=== PATIENT | female | born 1945 | race Two or more races ===

== ENCOUNTER 2019-02-28 05:25 | Day surgery (SDC) | payer OTHER ==
[~2019-02-28 05:25] MED LIST: ATIVAN0.5 MG PO; DIOVAN HCT 320/1 TAB; HYZAAR 100-251 EACH PO; LEVSIN0.125 MG PO; NORVASC5 MG PO; TEMAZEPAM30 MG PO; TOPROL XL200 MG PO; ZOCOR40 MG PO; ZOLOFT25 MG PO
== END 2019-02-28 11:10 | disposition home or self-care (01) ==
LOC: CIR.AMB 05:25
DX: N84.0 Polyp of corpus uteri (principal)

== ENCOUNTER 2020-07-13 12:49 | Outpatient (CLI) | payer OTHER | END 2020-07-13 12:53 | disposition home or self-care (01) | LOC: LAB 12:49 | PROVIDERS: ATTEND Internal Medicine | DX: Z03.818 Encounter for observation for suspected exposure to other biological agents ruled out (principal); Z13.820 Encounter for screening for osteoporosis; M15.8 Other polyosteoarthritis; M81.8 Other osteoporosis without current pathological fracture; M15.0 Primary generalized (osteo)arthritis; E78.89 Other lipoprotein metabolism disorders ==

== ENCOUNTER 2020-07-16 05:25 | Day surgery (SDC) | payer OTHER | END 2020-07-16 12:00 | disposition home or self-care (01) | LOC: CIR.AMB 05:25 | PROVIDERS: ATTEND Obstetrics & Gynecology | DX: N84.0 Polyp of corpus uteri (principal); Z20.828 Contact with and (suspected) exposure to other viral communicable diseases ==